=== PATIENT | female | born 1965 | race Caucasian/White ===

== ENCOUNTER → 2020-10-17 | Outpatient (CLI) | payer OTHER | LOC: US 10:28 → CT 11:30 | DX: I65.23 Occlusion and stenosis of bilateral carotid arteries (principal); I73.9 Peripheral vascular disease, unspecified; R42 Dizziness and giddiness; R51.9 Headache, unspecified; M79.606 Pain in leg, unspecified; Z95.828 Presence of other vascular implants and grafts; T82.856A Stenosis of peripheral vascular stent, initial encounter | CPT/HCPCS: 36415; 75635; 82565; 93880; Q9967 ==

== ENCOUNTER → 2020-11-26 | Outpatient (CLI) | payer OTHER | LOC: HEART CORB 12:51 | DX: R55 Syncope and collapse (principal) ==

== ENCOUNTER → 2020-12-08 | Outpatient (CLI) | payer OTHER | LOC: HEART CORB 10:30 | DX: R60.9 Edema, unspecified (principal); R55 Syncope and collapse; I10 Essential (primary) hypertension; I08.1 Rheumatic disorders of both mitral and tricuspid valves | CPT/HCPCS: 93306 ==

== ENCOUNTER → 2021-07-02 | Outpatient (CLI) | payer OTHER | LOC: KOH-I 12:09 | DX: Z87.891 Personal history of nicotine dependence (principal) | CPT/HCPCS: 71271 ==